=== PATIENT | female | born 1930 | race Caucasian/White ===

== ENCOUNTER 2017-01-11 10:21 | Inpatient (IN) | payer MEDICARE ==
[2017-01-11] VITALS (7 sets, daily range): BP systolic 110–180; BP diastolic 63–84; PULSE 62–79; RESP 18–20; TEMP 97.1–98.3; O2SAT 96–100
[~2017-01-11 10:21] MED LIST: ACET325 PO; ALBU8I INH; CALCCHW25 PO; COUM4TAB7 PO; FLOV44AE INH; HYDR-2768 PO; HYDR-3533 PO; METO25CR PO; NITR0.4S SL; OCUVTAB PO; PROT40IN IV; SIMV40TA PO; SYST0.4D2; TRIA3AER EACH NARE; WARF2TAB PO; ZOCO40TA PO; ZOLP5TAB3 PO
--- NOTE | 2017-01-11 10:59 | PD ---
HPI Chief Complaint: Neuro Symptoms/ Deficits Time Seen by Provider: 10:38 Travel History International Travel<30 days: No Contact w/Intl Traveler<30days: No Traveled to known affect area: No History of Present Illness HPI The patient was seen and examined in the presence of the nurse. This patient woke up at 3:30 AM to go to the restroom. When she was walking she noticed that she was listing toward the right side. She doesn't have a perfect gait to start with and uses a cane but she felt this was abnormal. It lasted about 5 hours and has almost completely resolved. She has a minor tendency to severe toward the right side one walking but it's minimal. She can walk without undue difficulty. She has no headache or head injury. She does take Coumadin for A. fib. No speech slurring or confusion or muscle weakness or sensory loss. Severity was moderate but now very minimal. No alleviating factors. PFSH Past Medical History Hx Anticoagulant Therapy: Yes Arthritis: Yes Atrial Fibrillation: Yes Cerebrovascular Accident: Yes Coronary Artery Disease: Yes Diminished Hearing: No ?: Not Past Surgical History Cardiac Surgery: Yes (OPEN HEART BYPASS) Tonsillectomy: Yes Other Surgery: Yes (HEMORROIDECTOMY) Social History Alcohol Use: No Tobacco Use: No Substance Use: No Allergies-Medications (Allergen,Severity, Reaction): Coded Allergies: No Known Allergies (Verified , 01/11/17) Reported Meds & Prescriptions Reported Meds & Active Scripts Active Reported K-Tab (Potassium Chloride) 10 Meq Tab 10 Meq PO DAILY Montelukast (Montelukast Sodium) 10 Mg Tab 10 Mg PO HS Ventolin Hfa 18 GM Inh (Albuterol Sulfate) 90 Mcg/Act Aer 2 Puff INH Q4-6H PRN Nitroglycerin SL (Nitroglycerin) 0.4 Mg Subl 0.4 Mg SL DIRECTED PRN ONE TABLET UNDER THE TONGUE NEEDED FOR CHEST PAIN, MAY REPEAT EVERY FIVE MINUTES FOR A TOTAL OF 3 DOSES OR CALL 911 IF NO RELIEF Simvastatin 40 Mg Tab 40 Mg PO HS Warfarin 2.5 Mg Tab 2.5 Mg PO TUTHSASU Warfarin 5 Mg Tab 5 Mg PO MOWEFR Flovent Hfa 10.6 GM Inh (Fluticasone Propionate) 44 Mcg/Act Inh 2 Puff INH DAILY Use daily at the same time. Ocuvite (Multiple Vitamins W/ Minerals) 1 Tab 1 Tab PO DAILY Hydrochlorothiazide 25 Mg Tab 25 Mg PO DAILY Metoprolol Succinate ER 24 HR (Metoprolol Succinate) 25 Mg Tab 25 Mg PO BID Pantoprazole (Pantoprazole Sodium) 40 Mg Tab 40 Mg PO DAILY Review of Systems General / Constitutional: No: Fever Eyes: No: Visual changes HENT: No: Headaches Cardiovascular: Positive: Irregular Rhythm, No: Chest Pain or Discomfort Respiratory: No: Shortness of Breath Gastrointestinal: No: Abdominal Pain Genitourinary: No: Dysuria Musculoskeletal: No: Pain Skin: No Rash Neurologic: Positive: Ataxia, No: Weakness Psychiatric: No: Depression Endocrine: No: Polydipsia Hematologic/Lymphatic: No: Easy Bruising Physical Exam Narrative GENERAL: Well-nourished, well-developed patient in no apparent distress. SKIN: Warm and dry. HEAD: Atraumatic. Normocephalic. EYES: Pupils equal and round. No scleral icterus. No injection or drainage. ENT: No nasal bleeding or discharge. Mucous membranes pink and moist. NECK: Trachea midline. No JVD. CARDIOVASCULAR: Regular rate and rhythm. No murmur appreciated. RESPIRATORY: No accessory muscle use. Clear to auscultation. Breath sounds equal bilaterally. GASTROINTESTINAL: Abdomen soft, non-tender, nondistended. Hepatic and splenic margins not palpable. MUSCULOSKELETAL: No obvious deformities. No clubbing. No cyanosis. No edema. NEUROLOGICAL: Awake and alert. No obvious cranial nerve deficits. Motor grossly within normal limits. Normal speech. PSYCHIATRIC: Appropriate mood and affect; insight and judgment normal. Data Data Last Documented VS Vital Signs Date Time Temp Pulse Resp B/P Pulse Ox O2 Delivery O2 Flow Rate FiO2 01/11/17 12:59 66 20 167/84 100 Room Air 01/11/17 10:33 98.3 Orders Iv Access Insert/Monitor (01/11/17 10:51) Complete Blood Count With Diff (01/11/17 10:51) Basic Metabolic Panel (Bmp) (01/11/17 10:51) Prothrombin Time / Inr (Pt) (01/11/17 10:51) Ct Brain W/O Iv Contrast(Rout) (01/11/17 ) Admit Order (Ed Use Only) (01/11/17 13:01) Labs Laboratory Tests Test 01/11/17 11:20 White Blood Count 6.4 TH/MM3 Red Blood Count 4.12 MIL/MM3 Hemoglobin 11.9 GM/DL Hematocrit 36.6 % Mean Corpuscular Volume 88.8 FL Mean Corpuscular Hemoglobin 29.0 PG Mean Corpuscular Hemoglobin 32.6 % Concent Red Cell Distribution Width 13.5 % Platelet Count 130 TH/MM3 Mean Platelet Volume 7.8 FL Neutrophils (%) (Auto) 63.5 % Lymphocytes (%) (Auto) 26.1 % Monocytes (%) (Auto) 7.5 % Eosinophils (%) (Auto) 2.2 % Basophils (%) (Auto) 0.7 % Neutrophils # (Auto) 4.1 TH/MM3 Lymphocytes # (Auto) 1.7 TH/MM3 Monocytes # (Auto) 0.5 TH/MM3 Eosinophils # (Auto) 0.1 TH/MM3 Basophils # (Auto) 0.0 TH/MM3 CBC Comment DIFF FINAL Differential Comment Prothrombin Time 37.4 SEC Prothromb Time International 3.2 RATIO Ratio Sodium Level 139 MEQ/L Potassium Level 3.7 MEQ/L Chloride Level 101 MEQ/L Carbon Dioxide Level 30.0 MEQ/L Anion Gap 8 MEQ/L Blood Urea Nitrogen 15 MG/DL Creatinine 0.82 MG/DL Estimat Glomerular Filtration 66 ML/MIN Rate Random Glucose 92 MG/DL Calcium Level 9.3 MG/DL MDM Medical Decision Making Medical Screen Exam Complete: Yes Emergency Medical Condition: Yes Medical Record Reviewed: Yes Differential Diagnosis TIA, CVA, ataxia, deconditioning Narrative Course I have reviewed the patient's electronic medical record. IV placed CBC is normal Metabolic profile is normal INR on Coumadin is 3.[address] shows chronic stable encephalomalacia Patient has no objective neurologic deficits and basically normal exam when examining her supine in the bed. Her only complaint was with gait however so I ambulated her in the hallway so I could see what was going on. She looks fairly steady but had minimal tendency to occasionally list toward the right. Review the case in detail with neurologist automation operator Dr. Montiel. He recommends patient to the hospital for further neurologic evaluation citing concern for acute cerebellar CVA. She still does have abnormal gait. I placed a call to the floor healthcare hospitalist to discuss Diagnosis Primary Impression: Acute cerebrovascular accident of cerebellum Admitting Information Admitting Physician Requests: Admit Luis Verdin MD Jan 11, 2017 10:59
[2017-01-11] MEDS ORDERED: OCUVTAB PO (11:26)
[2017-01-11] MEDS ORDERED: SIMV40TA PO (11:26)
[2017-01-11] MEDS ORDERED: PANT40TA3 PO (11:26)
[2017-01-11] MEDS ORDERED: WARF-23 PO (11:26)
[2017-01-11] MEDS ORDERED: K-TA10TA PO (11:26)
[2017-01-11] MEDS ORDERED: HYDR25TA5 PO (11:26)
[2017-01-11] MEDS ORDERED: FLUTI44I INH (11:26)
[2017-01-11] MEDS ORDERED: MONT10TA4 PO (11:26)
[2017-01-11] MEDS ORDERED: NITR1SUB3 SL (11:26)
[2017-01-11] MEDS ORDERED: WARF-18 PO (11:26)
[2017-01-11] MEDS ORDERED: VENTAER INH (11:26)
[2017-01-11] MEDS ORDERED: METO25TA6 PO (11:26)
[2017-01-11 11:35] LABS: AUTOMATED NEUTROPHIL # 4.1 TH/MM3 (1.8-7.7); BASOPHIL % 0.7 % (0.0-2.0); EOSINOPHIL # 0.1 TH/MM3 (0-0.4); EOSINOPHIL % 2.2 % (0.0-4.0); HEMATOCRIT 36.6 % (35.0-46.0); HEMO FLAGS DIFF FINAL; LYMPH % 26.1 % (9.0-44.0); LYMPHOCYTE # 1.7 TH/MM3 (1.0-4.8); MEAN CELL VOLUME 88.8 FL (80.0-100.0); MEAN CORPUSCULAR HGB CONC 32.6 % (32.0-36.0); MONO % 7.5 % (0.0-8.0); NEUT % 63.5 % (16.0-70.0); PLATELET COUNT 130 TH/MM3 (150-450); RED BLOOD COUNT 4.12 MIL/MM3 (4.00-5.30); RED CELL DISTRIBUTION WIDTH 13.5 % (11.6-17.2); WHITE BLOOD COUNT 6.4 TH/MM3 (4.0-11.0)
[2017-01-11 11:43] LABS: POTASSIUM 3.7 MEQ/L (3.5-5.1)
--- NOTE | 2017-01-11 11:47 | RADHPO ---
EXAM DATE/TIME: 01/11/2017 11:31 [facility] COMPARISON: CT BRAIN W/O CONTRAST, February 22, 2015, 14:07. INDICATIONS : Cerebrovascular accident. Listing toward right when walking since early this morning. Mostly resolv ed. RADIATION DOSE: 62.49 CTDIvol (mGy) MEDICAL HISTORY : Cerebrovascular disease. Cardiovascular disease Gastroesophageal reflux disease.Hypertension. SURGICAL HISTORY : CABG ENCOUNTER: Initial ACUITY: 1 day PAIN SCALE: 0/10 LOCATION: cranial TECHNIQUE: Multiple contiguous axial images were obtained of the head. Using automated exposure control and adj ustment of the mA and/or kV according to patient size, radiation dose was kept as low as reasonably a chievable to obtain optimal diagnostic quality images. FINDINGS: CEREBRUM: There is diffuse moderate atrophic change with sulcal prominence. There is stable encephalomalacia in volving the left parietal lobe. Dense punctate calcifications are again noted in the basal ganglia. N o evidence of midline shift, mass lesion, hemorrhage or acute infarction. No extra-axial fluid colle ctions are seen. POSTERIOR FOSSA: Stable appearance with calcifications again noted and a cerebellar hemispheres right greater than lef t. Atrophy remains. The 4th ventricle is midline. The cerebellopontine angle is unremarkable. EXTRACRANIAL: The visualized portion of the orbits is intact. SKULL: The calvaria is intact. No evidence of skull fracture. CONCLUSION: 1. No acute hemorrhage or mass effect. 2. Stable encephalomalacia in the left parietal lobe and diffuse atrophic change. 3. Stable appearance of the cerebellum with asymmetric calcification. Shahid Ricketts MD on January 11, 2017 at 11:43 Board Certified Radiologist. This report was verified electronically.
[2017-01-11 11:50] LABS: INTERNATIONAL NORMALIZED RATIO 3.2 RATIO; PROTHROMBIN TIME - PATIENT 37.4 SEC (9.8-11.6)
[2017-01-11] MEDS ORDERED: ALBUTEROL SULFATE 90 MCG/ACT HFA 8 GM INHALER INH PRN (15:45)
[2017-01-11] MEDS ORDERED: NITROGLYCERIN 0.4 MG SL 25 TABS/BTL SL PRN (15:45)
--- NOTE | 2017-01-11 15:47 | HHI.HP ---
HPI Service [facility] Hospitalists Primary Care Physician Gerhard Hawkins MD Admission Diagnosis acute cerebellar CVA Chief Complaint: unsteady gait Travel History International Travel<30 Days: No Contact w/Intl Traveler <30 Da: No Traveled to Known Affected Are: No History of Present Illness This patient woke up at 3:30 AM to go to the restroom. When she was walking she noticed that she was listing toward the right side. She doesn't have a perfect gait to start with and uses a cane but she felt this was abnormal. It lasted about 5 hours and has almost completely resolved. She has a minor tendency to severe toward the right side one walking but it's minimal. She can walk without undue difficulty. She has no headache or head injury. She does take Coumadin for A. fib. No speech slurring or confusion or muscle weakness or sensory loss. Severity was moderate but now very minimal. No alleviating factors. Patient case discussed with neurology recommends admit obtain neuro work up continue Coumadin . Patient will have PT evaluation as well. Review of Systems Neurologic: COMPLAINS OF: Abnormal gait Past Family Social History Past Medical History a fib,djd,cad,cva,copd Past Surgical History CABS,hemorrhoid,tonsil Reported Medications K-Tab (Potassium Chloride) 10 Meq Tab 10 Meq PO DAILY Montelukast (Montelukast Sodium) 10 Mg Tab 10 Mg PO HS Ventolin Hfa 18 GM Inh (Albuterol Sulfate) 90 Mcg/Act Aer 2 Puff INH Q4-6H PRN Nitroglycerin SL (Nitroglycerin) 0.4 Mg Subl 0.4 Mg SL DIRECTED PRN ONE TABLET UNDER THE TONGUE NEEDED FOR CHEST PAIN, MAY REPEAT EVERY FIVE MINUTES FOR A TOTAL OF 3 DOSES OR CALL 911 IF NO RELIEF Simvastatin 40 Mg Tab 40 Mg PO HS Warfarin 2.5 Mg Tab 2.5 Mg PO TUTHSASU Warfarin 5 Mg Tab 5 Mg PO MOWEFR Flovent Hfa 10.6 GM Inh (Fluticasone Propionate) 44 Mcg/Act Inh 2 Puff INH DAILY Use daily at the same time. Ocuvite (Multiple Vitamins W/ Minerals) 1 Tab 1 Tab PO DAILY Hydrochlorothiazide 25 Mg Tab 25 Mg PO DAILY Metoprolol Succinate ER 24 HR (Metoprolol Succinate) 25 Mg Tab 25 Mg PO BID Pantoprazole (Pantoprazole Sodium) 40 Mg Tab 40 Mg PO DAILY Allergies: Coded Allergies: No Known Allergies (Verified , 01/11/17) Social History former smoker Physical Exam Vital Signs Vital Signs Date Time Temp Pulse Resp B/P Pulse Ox O2 Delivery O2 Flow Rate FiO2 01/11/17 12:59 66 20 167/84 100 Room Air 01/11/17 10:37 Room Air 01/11/17 10:33 98.3 68 18 180/81 99 Physical Exam GENERAL: This is a well-nourished, well-developed patient, in no apparent distress. SKIN: No rashes, ecchymoses or lesions. Cool and dry. HEAD: Atraumatic. Normocephalic. No temporal or scalp tenderness. EYES: Pupils equal round and reactive. Extraocular motions intact. No scleral icterus. No injection or drainage. ENT: Nose without bleeding, purulent drainage or septal hematoma. Throat without erythema, tonsillar hypertrophy or exudate. Uvula midline. Airway patent. NECK: Trachea midline. No JVD or lymphadenopathy. Supple, nontender, no meningeal signs. CARDIOVASCULAR: Regular rate and rhythm without murmurs, gallops, or rubs. RESPIRATORY: Clear to auscultation. Breath sounds equal bilaterally. No wheezes , rales, or rhonchi. GASTROINTESTINAL: Abdomen soft, non-tender, nondistended. No hepato-splenomegaly , or palpable masses. No guarding. MUSCULOSKELETAL: Extremities without clubbing, cyanosis, or edema. No joint tenderness, effusion, or edema noted. No calf tenderness. Negative Homans sign bilaterally. NEUROLOGICAL: Awake and alert. Cranial nerves II through XII intact. Motor and sensory grossly within normal limits. Five out of 5 muscle strength in all muscle groups. Normal speech. On ambulation some gait disturbance Laboratory Laboratory Tests Test 01/11/17 11:20 White Blood Count 6.4 Red Blood Count 4.12 Hemoglobin 11.9 Hematocrit 36.6 Mean Corpuscular Volume 88.8 Mean Corpuscular Hemoglobin 29.0 Mean Corpuscular Hemoglobin 32.6 Concent Red Cell Distribution Width 13.5 Platelet Count 130 Mean Platelet Volume 7.8 Neutrophils (%) (Auto) 63.5 Lymphocytes (%) (Auto) 26.1 Monocytes (%) (Auto) 7.5 Eosinophils (%) (Auto) 2.2 Basophils (%) (Auto) 0.7 Neutrophils # (Auto) 4.1 Lymphocytes # (Auto) 1.7 Monocytes # (Auto) 0.5 Eosinophils # (Auto) 0.1 Basophils # (Auto) 0.0 CBC Comment DIFF FINAL Differential Comment Prothrombin Time 37.4 Prothromb Time International 3.2 Ratio Sodium Level 139 Potassium Level 3.7 Chloride Level 101 Carbon Dioxide Level 30.0 Anion Gap 8 Blood Urea Nitrogen 15 Creatinine 0.82 Estimat Glomerular Filtration 66 Rate Random Glucose 92 Calcium Level 9.3 Result Diagram: 01/11/17 1120 01/11/17 1120 Imaging Last [address] 01/11/17 0000 Signed Impressions: Service Date/Time: Wednesday, January 11, 2017 11:31 - CONCLUSION: 1. No acute hemorrhage or mass effect. 2. Stable encephalomalacia in the left parietal lobe and diffuse atrophic change. 3. Stable appearance of the cerebellum with asymmetric calcification. Shahid Ricketts MD Assessment and Plan Problem List: (1) Acute cerebrovascular accident of cerebellum Status: Acute Plan: plan as per neurology already on coumadin at therapeutic dose MRI 2d echo carotids ordered and PT evaluation CT head no acute findings (2) Atrial fibrillation Status: Chronic Plan: continue b ryan and Coumadin Assessment and Plan further plan pending review of tests and neurology evaluation Code Status full Discussed Condition With patient Physician Certification 2 Midnight Certification Type: Admission for Inpatient Services Order for Inpatient Services The services are ordered in accordance with Medicare regulations or non- Medicare payer requirements, as applicable. In the case of services not specified as inpatient-only, they are appropriately provided as inpatient services in accordance with the 2-midnight benchmark. Estimated LOS (days): 3 3 days is the estimated time the patient will need to remain in the hospital, assuming treatment plan goals are met and no additional complications. Post-Hospital Plan: Not yet determined Mateo Shah MD Jan 11, 2017 15:47
--- NOTE | 2017-01-11 15:52 | RADHPO ---
EXAM DATE/TIME: 01/11/2017 15:31 [facility] COMPARISON: CT BRAIN W/O CONTRAST, February 21, 2015, 14:30. INDICATIONS : Unsteady gait. Right leg weakness. MEDICAL HISTORY : Hypertension. Cerebrovascular disease. Cardiovascular disease. SURGICAL HISTORY : CABG Tonsillectomy. ENCOUNTER: Initial ACUITY: 1 day PAIN SCORE: 0/10 LOCATION: cranial TECHNIQUE: Multiplanar, multisequence MRI of the brain was performed without contrast. FINDINGS: Axial T2-weighted images demonstrate an old area of infarct with surrounding gliosis involving the wa tershed distribution posteriorly on the left. No findings to indicate acute cortical infarction are p resent on the diffusion restriction images. The ventricles are normal in size and configuration. No abnormal extra-axial fluid collections are se en. No mass lesion is identified. The appearance of the posterior fossa is unremarkable. There is mucoperiosteal sinus disease involving the left side of the sphenoid sinus. CONCLUSION: 1. Old infarct seen posteriorly on the left. This is stable compared back to prior CT dated 02/21/15. 2. No findings to indicate acute cortical infarction are identified. Danyel Hurst MD on January 11, 2017 at 15:46 Board Certified Radiologist. This report was verified electronically.
[2017-01-11] MEDS ORDERED: WARFARIN SOD 5 MG TAB PO SCH (16:00)
[2017-01-11] MEDS ORDERED: SODIUM CHLORIDE 0.9% FLUSH 5 ML FLUSH IVF PRN (17:30)
[2017-01-11] MEDS ORDERED: GLUCAGON 1 MG/ML VIAL IM/SQ PRN (17:30)
[2017-01-11] MEDS ORDERED: DEXTROSE 50% IN WATER 50 ML VIAL(D50) IV PUSH PRN (17:30)
--- NOTE | 2017-01-11 17:47 | MB ---
cc: SUSANA MARIN M.D. DATE OF CONSULTATION: 01/11/2017. REASON FOR CONSULTATION: Possible stroke. HISTORY OF PRESENT ILLNESS: Ms. Alfaro is a very nice 86-year-old woman with history of stroke in the past as well as atrial fibrillation and takes Coumadin. She woke up early this morning and noted difficulty walking where she would tend to drift to the right side. No focal weakness or vertigo. She had no double vision. Her symptoms have improved basically back to normal at the present time. PAST MEDICAL HISTORY: 1. History of stroke in the past. 2. COPD. 3. Coronary artery disease. 4. Degenerative arthritis. 5. Atrial fibrillation. 6. CABG procedure. 7. Hemorrhoid surgery. 8. Tonsillectomy. MEDICINES AT HOME: 1. K-Tab. 2. Singulair. 3. Ventolin. 4. Nitroglycerin. 5. Simvastatin. 6. Coumadin. 7. Flovent. 8. Ocuvite. 9. Hydrochlorothiazide. 10. Metoprolol. 11. Pantoprazole. ALLERGIES: NONE KNOWN. NEUROLOGICAL EXAMINATION: VITAL SIGNS: Blood pressure is 160/82, pulse 67, respirations 19, temperature 98 degrees. HIGHER CORTICAL FUNCTIONS: Higher cortical functions are normal. CRANIAL NERVES: Cranial nerves II-XII are normal in detail. MOTOR: On motor exam, she has 5/5 strength of all groups in both upper and lower extremities. There is no drift. Fine motor skills are normal. REFLEXES: Reflexes symmetric. CEREBELLAR: Cerebellar testing is normal with no dysmetria. IMAGING STUDIES: CT of the brain: Encephalomalacia left parietal lobe with atrophy, no acute change. No hemorrhage. MRI of the brain: No acute stroke identified. Old infarct in the left hemisphere as noted above. LABORATORY DATA: White count 6400, hemoglobin 11.9, hematocrit 36%, platelets are 130,000. Sodium is 139, potassium 3.7, chloride 101, CO2 30, BUN is 15, creatinine 0.82, GFR is 66. PT 37.4, INR 3.2. IMPRESSION: Suspect this may have been a TIA involving the cerebellum. No stroke is identified on the MRI, probably cardioembolic. RECOMMENDATIONS: 1. Recommend obtaining an echocardiogram. 2. Also will get an MRA of the arteries in the neck to rule out any significant stenosis. 3. Continue Coumadin. 4. Also check a lipid panel. MD SELINA Curry/MORALES /5:30 PM /5:40 PM
[2017-01-11] MEDS ORDERED: PRAVASTATIN SOD 80 MG TAB PO SCH (21:00)
[2017-01-11] MEDS: INSULIN ASPART SUPPLEMENTAL SCALE SQ SCH (21:00)
[2017-01-11] MEDS ORDERED: MONTELUKAST SODIUM 10 MG TAB PO SCH (21:00)
[2017-01-11] MEDS: METOPROLOL SUCCINATE 25 MG EXTENDED RELEASE TAB PO SCH (21:09)
[2017-01-11] MEDS: SODIUM CHLORIDE 0.9% FLUSH 5 ML FLUSH IVF SCH (21:09)
[2017-01-12] VITALS (7 sets, daily range): BP systolic 110–165; BP diastolic 68–87; PULSE 2–68; RESP 15–18; TEMP 96.8–97.8; O2SAT 96–98
[2017-01-12] MEDS: INSULIN ASPART SUPPLEMENTAL SCALE SQ SCH ×2 (05:32→11:00)
[2017-01-12] MEDS ORDERED: GADODIAMIDE PF 287 MG/ML 20 ML VIAL (for RAD MRI) IV ONE (07:30)
[2017-01-12] MEDS ORDERED: FLUTICASONE PROPIONATE 44 MCG/ACT 10.6 GM INHALER INH SCH (09:00)
[2017-01-12] MEDS ORDERED: POTASSIUM CHLORIDE 10 MEQ CONTROLLED RELEASE TAB PO SCH (09:00)
[2017-01-12] MEDS ORDERED: PANTOPRAZOLE SOD 40 MG DELAYED RELEASE TAB PO SCH (09:00)
[2017-01-12] MEDS ORDERED: HYDROCHLOROTHIAZIDE 25 MG TAB PO SCH (09:00)
[2017-01-12] MEDS ORDERED: MULTIVITAMIN-OPHTHALMIC 1 TAB PO SCH (09:00)
[2017-01-12] MEDS: SODIUM CHLORIDE 0.9% FLUSH 5 ML FLUSH IVF SCH (09:15)
[2017-01-12] MEDS: METOPROLOL SUCCINATE 25 MG EXTENDED RELEASE TAB PO SCH (09:17)
--- NOTE | 2017-01-12 09:36 | RADHPO ---
EXAM DATE/TIME: 01/12/2017 08:44 [facility] COMPARISON: No previous studies available for comparison. INDICATIONS : Unsteady gait CONTRAST: 20 cc Omniscan (gadodiamide) IV MEDICAL HISTORY : Hypertension. SURGICAL HISTORY : CABG Tonsillectomy. ENCOUNTER: Initial ACUITY: 2 day PAIN SCORE: 0/10 LOCATION: neck Percent stenosis is calculated using the diameter of the stenotic region over the diameter of the nor mal distal internal carotid artery. TECHNIQUE: Bolus infused MRA of the extracranial circulation was performed using a neurovascular coil. Post pro cessing was performed including rotationg subvolume maximum intensity projections of each carotid art marika, rotating full volume maximum intensity projections of both carotid arteries, sagittal and gtz l sliding thin slab reformations of each carotid artery, and left oblique sliding thin slab reformati on through the aortic arch to include the origin of the arch branch vessels. FINDINGS: AORTIC ARCH: There is a three vessel origin of the great vessels from the aorta. No evidence of ostial narrowing. RIGHT CAROTID: Tortuous. The common carotid artery is intact. The carotid bulb has a normal configuration without u lceration or narrowing. The internal carotid artery lumen is smooth without stenosis. The external carotid artery is intact. LEFT CAROTID: Tortuous. The common carotid artery is intact. The carotid bulb has a normal configuration without u lceration or narrowing. The internal carotid artery lumen is smooth without stenosis. The external carotid artery is intact. VERTEBRALS: The vertebral arteries have a symmetric diameter. No stenotic lesions are seen. CONCLUSION: Normal carotid MRA. Dani Lovett MD on January 12, 2017 at 9:34 Board Certified Radiologist. This report was verified electronically.
--- NOTE | 2017-01-12 09:39 | RADHPO ---
EXAM DATE/TIME: 01/12/2017 08:44 [facility] COMPARISON: No previous studies available for comparison. INDICATIONS : Unsteady gait. MEDICAL HISTORY : Hypertension. SURGICAL HISTORY : CABG Tonsillectomy. ENCOUNTER: Initial ACUITY: 2 day PAIN SCORE: 0/10 LOCATION: cranial Please note a normal MRA of the brain does not entirely exclude the possibility of a small aneurysm, nor the possibility of distal intracranial vessel disease. TECHNIQUE: 3D time of flight MRA was performed. Source images, multiplanar STS MIP, and 3D volume MIP reconstru ctions were reviewed. FINDINGS: Short segment moderate grade stenosis seen proximally of the left A1 segment, series 402 image 15. Th is is probably related to focal intracranial atherosclerosis. There is normal filling of the vessel d istally. Otherwise, intracranial arteries have normal caliber. There is a posterior communicating art marika on the left. CONCLUSION: An approximately 2 mm long moderate grade stenosis of the proximal left anterior cerebral artery like ly related to focal atherosclerotic plaque. The vessel fills normally downstream. Otherwise normal in tracranial MRA. Dani Lovett MD on January 12, 2017 at 9:35 Board Certified Radiologist. This report was verified electronically.
[2017-01-12 10:16] LABS: HDL CHOLESTEROL 59.7 MG/DL (40.0-60.0)
--- NOTE | 2017-01-12 11:12 | HHI.DS ---
Discharge Summary Admission Date Jan 11, 2017 at 13:02 Discharge Date: Jan 12, 2017 Admitting Diagnosis acute cerebellar CVA (1) Acute cerebrovascular accident of cerebellum Diagnosis: Secondary (2) Atrial fibrillation Diagnosis: Principal (3) TIA (transient ischemic attack) Diagnosis: Principal Brief History This patient woke up at 3:30 AM to go to the restroom. When she was walking she noticed that she was listing toward the right side. She doesn't have a perfect gait to start with and uses a cane but she felt this was abnormal. It lasted about 5 hours and has almost completely resolved. She has a minor tendency to severe toward the right side one walking but it's minimal. She can walk without undue difficulty. She has no headache or head injury. She does take Coumadin for A. fib. No speech slurring or confusion or muscle weakness or sensory loss. Severity was moderate but now very minimal. No alleviating factors. Patient case discussed with neurology recommends admit obtain neuro work up continue Coumadin . Patient will have PT evaluation as well. CBC/BMP: 01/11/17 1120 01/11/17 1120 Significant Findings Laboratory Tests Test 01/11/17 11:20 Platelet Count 130 TH/MM3 (150-450) Prothrombin Time 37.4 SEC (9.8-11.6) Estimat Glomerular Filtration 66 ML/MIN (>89) Rate Imaging Last 24 hours Impressions Neck Magnetic Resonance Angiography 01/12/17 0000 Signed Impressions: Service Date/Time: Thursday, January 12, 2017 08:44 - CONCLUSION: Normal carotid MRA. 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 The vessel fills normally downstream. Otherwise normal intracranial MRA. Dani Lovett MD PE at Discharge GENERAL: SKIN: Warm and dry. HEAD: Atraumatic. Normocephalic. EYES: Pupils equal and round. No scleral icterus. No injection or drainage. ENT: No nasal bleeding or discharge. Mucous membranes pink and moist. NECK: Trachea midline. No JVD. CARDIOVASCULAR: Regular rate and rhythm. RESPIRATORY: No accessory muscle use. Clear to auscultation. Breath sounds equal bilaterally. GASTROINTESTINAL: Abdomen soft, non-tender, nondistended. Hepatic and splenic margins not palpable. MUSCULOSKELETAL: Extremities without clubbing, cyanosis, or edema. No obvious deformities. NEUROLOGICAL: Awake and alert. No obvious cranial nerve deficits. Motor grossly within normal limits. Five out of 5 muscle strength in the arms and legs. Normal speech. PSYCHIATRIC: Appropriate mood and affect; insight and judgment normal. Hospital Course Patient admitted with initial ? cva but had negative MRI brain and neurology felt had TIA labs were unremarkable and MRA neck negative MRA brain showed 2mm long moderate stenosis prox left anterior cerebral artery related to focal atherosclerotic plaque. Lipids normal. Patient has had no further symptoms ambulating as before present problems will follow up with PCP for 2d echo and possible cardiovascular evaluation . Pt Condition on Discharge: Good Discharge Disposition: Discharge Home Discharge Instructions DIET: Follow Instructions for: Heart Healthy Diet Activities you can perform: Regular-No Restrictions Continued Medications: Albuterol 18 GM Inh (Ventolin Hfa 18 GM Inh) 90 Mcg/Act Aer 2 PUFF INH Q4-6H PRN SHORTNESS OF BREATH #1 Ref 0 INHALER Fluticasone 10.6 GM Inh (Flovent Hfa 10.6 GM Inh) 44 Mcg/Act Inh 2 PUFF INH DAILY Use daily at the same time. Asthma Management #1 Ref 0 INHALER Hydrochlorothiazide (Hydrochlorothiazide) 25 Mg Tab 25 MG PO DAILY #30 Ref 0 TAB Metoprolol Succinate ER 24 HR (Metoprolol Succinate ER 24 HR) 25 Mg Tab 25 MG PO BID #30 Ref 0 TAB Montelukast (Montelukast) 10 Mg Tab 10 MG PO HS #30 Ref 0 TAB Multiple Vitamins W/ Minerals (Ocuvite) 1 Tab 1 TAB PO DAILY Nutritional Supplement Ref 0 TAB Nitroglycerin SL (Nitroglycerin SL) 0.4 Mg Subl 0.4 MG SL DIRECTED ONE TABLET UNDER THE TONGUE NEEDED FOR CHEST PAIN, MAY REPEAT EVERY FIVE MINUTES FOR A TOTAL OF 3 DOSES OR CALL 911 IF NO RELIEF PRN CHEST PAIN #100 Ref 0 TAB.SL Pantoprazole (Pantoprazole) 40 Mg Tab 40 MG PO DAILY Reflux #30 Ref 0 TAB Potassium Chloride ER (K-Tab) 10 Meq Tab 10 MEQ PO DAILY Electrolyte Replacement #30 Ref 0 TAB Simvastatin (Simvastatin) 40 Mg Tab 40 MG PO HS Cholesterol Management #30 Ref 0 TAB Warfarin (Warfarin) 5 Mg Tab 5 MG PO MoWeFr Blood Clot Prevention #30 Ref 0 TAB Warfarin (Warfarin) 2.5 Mg Tab 2.5 MG PO TuThSaSu Blood Clot Prevention #30 Ref 0 TAB Mateo Shah MD Jan 12, 2017 11:12
[2017-01-12 12:27] LABS: HEMOGLOBIN A1a 1.1 %; HEMOGLOBIN A1b 0.8 %; HEMOGLOBIN Ao 84.8 %; HEMOGLOBIN F 1.1 %; HEMOGLOBIN LA1C 1.9 %; HEMOGLOBIN P3 3.9 %
--- NOTE | 2017-01-12 15:23 | EC ---
Study Study Date:01/12/2017 STUDY CONCLUSIONS SUMMARY - Left ventricle: The cavity size was normal. Wall thickness was normal. Systolic function was normal. The estimated ejection fraction was in the range of 60% to 65%. Wall motion was normal; there were no regional wall motion abnormalities. Doppler parameters are consistent with abnormal left ventricular relaxation (grade 1 diastolic dysfunction). - Aortic valve: Valve area: 0.72cm^2(VTI). Valve area: 0.9cm^2 (Vmax). - Mitral valve: Mild regurgitation. - Atrial septum: No defect or patent foramen ovale was identified. - Pulmonary arteries: PA peak pressure: 40mm Hg (S). If LV function is below 40, please consider prescribing an ACEI or ARB or document rationale for non-use. PROCEDURE DATA STUDY STATUS: Elective. Procedure: Transthoracic echocardiography. Image quality was good. Scanning was performed from the parasternal, apical, and subcostal acoustic windows. Study completion: The patient tolerated the procedure well. Transthoracic echocardiography. M-mode, complete 2D, complete spectral Doppler, and color Doppler. Patient status: Inpatient. CARDIAC ANATOMY LEFT VENTRICLE: The cavity size was normal. Wall thickness was normal. Systolic function was normal. The estimated ejection fraction was in the range of 60% to 65%. Wall motion was normal; there were no regional wall motion abnormalities. Doppler parameters are consistent with abnormal left ventricular relaxation (grade 1 diastolic dysfunction). AORTIC VALVE: Trileaflet; moderately thickened, moderately calcified leaflets. Doppler: Transvalvular velocity was within the normal range. There was no stenosis. No regurgitation. Valve area: 0.72cm^2(VTI). Valve area: 0.9cm^2 (Vmax). Mean gradient: 7mm Hg (S). Peak gradient: 13mm Hg (S). AORTA: Aortic root: The aortic root was normal in size. MITRAL VALVE: Structurally normal valve. Doppler: Transvalvular velocity was within the normal range. There was no evidence for stenosis. Mild regurgitation. LEFT ATRIUM: The atrium was normal in size. ATRIAL SEPTUM: No defect or patent foramen ovale was identified. RIGHT VENTRICLE: The cavity size was normal. Wall thickness was normal. PULMONIC VALVE: Doppler: Transvalvular velocity was within the normal range. There was no evidence for stenosis. No regurgitation. TRICUSPID VALVE: Structurally normal valve. Doppler: Transvalvular velocity was within the normal range. Trace to mild regurgitation. Peak gradient: 31mm Hg (D). PULMONARY ARTERY: The main pulmonary artery was normal-sized. Systolic pressure was within the normal range. RIGHT ATRIUM: The atrium was normal in size. PERICARDIUM: There was no pericardial effusion. SYSTEMIC VEINS: Inferior vena cava: The vessel was normal in size. BASIC MEASUREMENTS ADULT Normal Left ventricle LV internal dimension, ED, chordal level, *42.9 mm 43-52 PLAX LV internal dimension, ES, chordal level, 34.8 mm 23-38 PLAX Fractional shortening, chordal level, PLAX *19 % >29 LV posterior wall thickness, ED 10.1 mm IVS/LVPW ratio, ED *1.32 <1.3 Ventricular septum Septal thickness, ED 13.3 mm Aortic valve Leaflet separation 16 mm 15-26 Right ventricle RV internal dimension, ED, PLAX *38.2 mm 19-38 BASIC MEASUREMENTS ADULT Normal Aortic valve Leaflet separation 16 mm 15-26 Aorta Root diameter, ED 30 mm 20-37 Left atrium Anterior-posterior dimension, ES *60 mm 19-40 LA/aortic root ratio 2 DOPPLER MEASUREMENTS ADULT Normal Main pulmonary artery Pressure, S *40 mm Hg =30 Aortic valve Peak velocity, S 183 cm/s Mean velocity, S 122 cm/s VTI, S 43.9 cm Mean gradient, S 7 mm Hg Peak gradient, S 13 mm Hg Valve area, VTI 0.72 cm^2 Valve area, Vmax 0.9 cm^2 Tricuspid valve Peak gradient, D 31 mm Hg Maximal inflow velocity 278 cm/s Regurgitant peak velocity 261 cm/s Peak RV-RA gradient, S 27 mm Hg Maximal regurgitant velocity 261 cm/s Systemic veins Estimated CVP 10 mm Hg Right ventricle RV pressure, S *40 mm Hg <30 LEGEND: Mean values are shown as u=mean value. Asterisk (*) james values outside specified normal range. Prepared and signed by Stef Posada [id number]
[2017-01-12] MEDS ORDERED: WARFARIN SOD 2.5 MG TAB PO SCH (16:00)
--- NOTE | 2017-01-12 16:36 | EKG ---
Date Performed: 01/11/2017 Time Performed: 10:28:12 PTAGE: 86 years EKG: Atrial fibrillation Left axis deviation Incomplete Right bundle branch block Possible septa l infarct - age undetermined Inferior/lateral ST-T changes are nonspecific Compared to previous froy ng, rhythm has changed from Sinus rhythm to atrial fibrillation, the incomplete Right bundle branch block is new, ST-T changes have improved anterolaterally Abnormal ECG NO PREVIOUS TRACING DOCTOR: Dom Hogue Interpretating Date/Time 01/12/2017 16:36:11
[2017-01-14] MEDS ORDERED: WARFARIN SOD 5 MG TAB PO SCH (16:00)
== END 2017-01-12 12:49 | disposition home or self-care (01) | DRG 69 ==
LOC: PHED 10:21 → PHEDA 13:02 → PH3A 14:49
PROVIDERS: ADMIT Internal Medicine; ATTEND Internal Medicine
DX: G45.9 Transient cerebral ischemic attack, unspecified (principal); G93.89 Other specified disorders of brain; I48.91 Unspecified atrial fibrillation; Z86.73 Personal history of transient ischemic attack (TIA), and cerebral infarction without residual deficits; Z79.01 Long term (current) use of anticoagulants; I25.10 Atherosclerotic heart disease of native coronary artery without angina pectoris; Z95.1 Presence of aortocoronary bypass graft; M19.90 Unspecified osteoarthritis, unspecified site; R26.2 Difficulty in walking, not elsewhere classified; Z87.891 Personal history of nicotine dependence; J44.9 Chronic obstructive pulmonary disease, unspecified; I67.2 Cerebral atherosclerosis
CPT/HCPCS: 70450; 70544; 70548; 70551; 80048; 80061; 82948; 83036; 85025; 85610; 93005; 93306; A9579

== ENCOUNTER → 2017-02-05 | Outpatient (CLI) | payer MEDICARE ==
[~2017-02-05] MED LIST changes: -ACET325 PO; -ALBU8I INH; -CALCCHW25 PO; -COUM4TAB7 PO; -FLOV44AE INH; +FLUTI44I INH; -HYDR-2768 PO; -HYDR-3533 PO; +HYDR25TA5 PO; +K-TA10TA PO; -METO25CR PO; +METO25TA6 PO; +MONT10TA4 PO; -NITR0.4S SL; +NITR1SUB3 SL; +PANT40TA3 PO; -PROT40IN IV; -SYST0.4D2; -TRIA3AER EACH NARE; +VENTAER INH; +WARF-18 PO; +WARF-23 PO; -WARF2TAB PO; -ZOCO40TA PO; -ZOLP5TAB3 PO
--- NOTE | 2017-03-04 10:15 | RSPPFT ---
DATE OF PROCEDURE: 02/05/17 COMMENTS: Spirometry shows FVC of 1.6 at 68% of predicted, FEV1 of 1.0 at 67%, FEV1/FVC ratio is normal. Flow is decreased at FEF 25, FEF 50, FEF 75 and FEF 25-75. There is no response after bronchodilator treatment. Lung volumes show residual volume is increased. TLC is increased. Diffusion capacity is normal. Flow volume loop indicates an obstructive pattern. IMPRESSION: 1. Mild small airways obstructive lung disease. 2. No response after bronchodilator treatment. 3. Lung volumes show hyperinflation. 4. Normal diffusion capacity.
== END ==
LOC: HRSP 10:41
PROVIDERS: ATTEND Specialist
DX: J45.20 Mild intermittent asthma, uncomplicated (principal); R06.00 Dyspnea, unspecified
CPT/HCPCS: 94060; 94726; 94729